=== PATIENT | female | born 1965 | race Caucasian/White ===

== ENCOUNTER 2016-09-29 08:25 | Outpatient (CLI) | payer OTHER ==
[2016-09-29 10:14] LABS: ALT (SGPT) 16 U/L (0-55); AST (SGOT) 22 U/L (5-34); Alkaline Phosphatase 55 U/L (40-150); Anion Gap 11 mmol/L (10-20); BUN (Urea Nitrogen) 14 mg/dL (7.0-18.7); Bilirubin, Total 0.5 mg/dL (0.2-1.2); Calc. Creatinine Clearance 0 mL/min (70-130); Calcium 9.4 mg/dL (7.8-10.44); Carbon Dioxide 29 mmol/L (22-29); Chloride 108 mmol/L (98-107); Estimated GFR-MDRD 68; Globulin 2.2 g/dL (2.4-3.5); Protein, Total 6.6 g/dL (6.0-8.3)
[2016-09-29 10:48] LABS: #Basophils 0.1 thou/uL (0.0-0.2); #Eosinphils 0.2 thou/uL (0.0-0.7); #Lymphocytes 1.5 thou/uL (1.20-3.40); #Monocytes 0.5 thou/uL (0.11-0.59); %Basophils 1.4 % (0.0-1.0); %Monocytes 9.3 % (0.0-10.0); Hematocrit 40.4 % (36.0-47.0); Mean Platelet Volume 7.5 fL (7.4-10.4); Red Blood Cell (RBC) Count 4.37 mill/uL (4.20-5.40); White Blood Cell (WBC) Count 5.2 thou/uL (4.8-10.8)
--- NOTE | 2016-09-29 20:51 | ULT ---
ULTRASOUND OF THE NECK SOFT TISSUES 09/29/16 Ultrasonography of the soft tissues of the neck was performed for evaluation of a palpable abnormali ty. No specific masses, adenopathy or cyst could be seen. The thyroid gland was normal in size and m easured 3.6 x 1.1 x 0.9 cm in the right lobe and 3.3 x 1.1 x 1.1 cm in the left lobe. No thyroid mas ses were imaged. IMPRESSION: No significant findings in the neck. POS: HOME
== END 2016-09-29 08:26 | disposition home or self-care (01) ==
LOC: BURLAB 08:25 → BURULT 08:26
PROVIDERS: ATTEND Family Medicine
DX: R22.1 Localized swelling, mass and lump, neck (principal); R07.9 Chest pain, unspecified
CPT/HCPCS: 36415; 76536; 80053; 84443; 85025